=== PATIENT | male | born 1950 | race Caucasian/White ===

== ENCOUNTER 2023-08-13 13:05 | Inpatient (IN) | payer MEDICARE ==
[2023-08-13] VITALS (8 sets, daily range): BP systolic 93–135; BP diastolic 58–79
[~2023-08-13] VITALS: Ht 177.8 cm; Wt 90.3 kg
[~2023-08-13 13:05] MED LIST: ASPI325 PO; ASPI81EC PO; AVAPRO; ESOM20 PO; FENO145 PO; HYDACE5 PO; IRBE150 PO; Nifedical Xl30 MG PO; SERT100 PO; TRIHYD253A; TRIHYD253A PO
[2023-08-13] MEDS ORDERED: CLOP75 PO (13:15)
[2023-08-13] MEDS ORDERED: HYDROCODONE-AC1 EA19 PO (13:16)
[2023-08-13] MEDS ORDERED: ALPRAZOLAM0.5 M1 PO (13:17)
[2023-08-13] MEDS ORDERED: PRED20 PO (13:17)
[2023-08-13 13:42] LABS: BASOPHILS ABSOLUTE AUTO 0.03 K/mm3 (0.00-0.23); BASOPHILS PERCENT AUTO 0 % (0-2); EOSINOPHILS ABSOLUTE AUTO 0.12 K/mm3 (0.00-0.68); EOSINOPHILS PERCENT AUTO 1 % (0-6); Hematocrit 34.8 % (37.0-53.0); Hemoglobin 11.6 g/dL (13.5-17.5); IMMATURE GRAN ABSOLUTE AUTO 0.08 K/mm3 (0.00-0.10); IMMATURE GRAN PERCENT AUTO 1 % (0-1); LYMPHOCYTES ABSOLUTE AUTO 1.91 K/mm3 (0.84-5.20); LYMPHOCYTES PERCENT AUTO 17 % (21-46); MONOCYTES ABSOLUTE AUTO 0.96 K/mm3 (0.16-1.47); MONOCYTES PERCENT AUTO 9 % (4-13); Mean Corpuscular HGB 29.7 pg (26.0-34.0); Mean Corpuscular HGB Conc 33.3 g/dL (31.5-36.5); Mean Corpuscular Volume 89 fL (80-100); Mean Platelet Volume 10.7 fL (9.1-12.4); NEUTROPHILS ABSOLUTE AUTO 7.91 K/mm3 (1.96-9.15); NEUTROPHILS PERCENT AUTO 72 % (41-73); Platelet Count 199 K/mm3 (150-400); RDW Coefficient Variation 13.4 % (11.7-14.2); RDW Standard Deviation 43.8 fL (35.1-46.3); White Blood Cell Count 11.01 K/mm3 (4.00-11.30)
[2023-08-13 13:57] LABS: Albumin, Blood 2.6 g/dL (3.4-5.0); Albumin/Globulin Ratio 0.6 (0.8-1.8); Bilirubin, Total 0.7 mg/dL (0.1-1.0); Calcium, Blood 8.7 mg/dL (8.5-10.1); Creatinine, Blood 2.07 mg/dL (0.60-1.20); Globulin, Blood 4.2 g/dL (2.2-4.0); Potassium, Blood 3.9 mmol/L (3.5-5.5); Total Protein, Blood 6.8 g/dL (6.4-8.2)
[2023-08-13 16:27] LABS: Anti-Xa UFH, PHA Monitoring <0.10 IU/mL; International Normalized Ratio 1.03; Prothrombin Time Results 10.8 Sec (9.7-11.5)
--- NOTE | 2023-08-13 22:53 | NUR ---
CARE ASSUMPTION: PATIENT ADMIT AT START OF SHIFT CHANGE. PATIENT FROM [place] WITH NEW STENT TO MID LAD. ALERT AND ORIENTED X4. DENIES NUMBNESS/TINGLING. 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 UP WITH NURSE ASSIST TO BSC. GLASSES AT BEDSIDE. ON ROOM AIR SATING ABOVE 95%. DENIES SOB/COUGH. LUNGS SOUNDING CLEAR AND DIM IN BASES. EVEN AND UNLABORED RESPIRATIONS. TELE SHOWING SR WITH HR 70-90'S. DENIES CHEST PAIN/PRESSURE/PALPITATIONS. NO EDEMA NOTED. SBP 90-120'S. RIGHT RADIAL SITE WNL, SOFT AND NONTENDER. TR BAND BEING DEFLATED. ARM BOARD IN PLACE. THIS RN EDUCATED ON RADIAL PRECAUTIONS. PATIENT ABLE TO TEACH BACK INSTRUCTIONS. ECHO ORDERS IN PLACE. POST VITALS IN PROGRESS AND STABLE. DR. MIKE CALLED AT START OF SHIFT BY THIS RN TO CONFIRM ORDERS. ORDERS TO DC IV HEPARIN GTT. HEPARIN DISCONTINUED. SKIN OVERALL C/D/I. CALL LIGHT IN REACH. MED REC COMPLETED WITH PATIENT HOME LIST. DENIES NEEDS AT THIS TIME.
--- NOTE | 2023-08-13 23:06 | NUR ---
TR BAND REMOVED AT THIS TIME. ARM BOARD IN PLACE. SITE REMAINS SOFT AND NONTENDER.
[2023-08-14 04:08] VITALS: BP 98/62
[2023-08-14 04:16] LABS: BASOPHILS ABSOLUTE AUTO 0.03 K/mm3 (0.00-0.23); BASOPHILS PERCENT AUTO 0 % (0-2); EOSINOPHILS ABSOLUTE AUTO 0.14 K/mm3 (0.00-0.68); EOSINOPHILS PERCENT AUTO 1 % (0-6); Hematocrit 31.4 % (37.0-53.0); Hemoglobin 10.4 g/dL (13.5-17.5); IMMATURE GRAN ABSOLUTE AUTO 0.04 K/mm3 (0.00-0.10); IMMATURE GRAN PERCENT AUTO 0 % (0-1); LYMPHOCYTES ABSOLUTE AUTO 1.92 K/mm3 (0.84-5.20); LYMPHOCYTES PERCENT AUTO 19 % (21-46); MONOCYTES ABSOLUTE AUTO 0.85 K/mm3 (0.16-1.47); MONOCYTES PERCENT AUTO 9 % (4-13); Mean Corpuscular HGB 29.7 pg (26.0-34.0); Mean Corpuscular HGB Conc 33.1 g/dL (31.5-36.5); Mean Corpuscular Volume 90 fL (80-100); Mean Platelet Volume 10.6 fL (9.1-12.4); NEUTROPHILS ABSOLUTE AUTO 6.97 K/mm3 (1.96-9.15); NEUTROPHILS PERCENT AUTO 70 % (41-73); Platelet Count 181 K/mm3 (150-400); RDW Coefficient Variation 13.4 % (11.7-14.2); RDW Standard Deviation 44.2 fL (35.1-46.3); White Blood Cell Count 9.95 K/mm3 (4.00-11.30)
[2023-08-14 04:40] LABS: Alanine Aminotransfer (ALT/SGP 38 U/L (12-78); Albumin, Blood 2.4 g/dL (3.4-5.0); Albumin/Globulin Ratio 0.6 (0.8-1.8); Alk Phos 60 U/L (50-136); Anion Gap 5 mmol/L (6-16); Aspartate Aminotrans (AST/SGOT 110 U/L (12-37); Bilirubin, Total 0.5 mg/dL (0.1-1.0); Blood Urea Nitrogen 30 mg/dL (8-24); Bun/Creatinine Ratio 18.8 (12.0-20.0); CHOL/HDL RATIO 7.3; CO2, Blood 25 mmol/L (21-32); Calcium, Blood 8.2 mg/dL (8.5-10.1); Chloride, Blood 111 mmol/L (98-108); Cholesterol 138 mg/dL (50-200); Globulin, Blood 3.9 g/dL (2.2-4.0); Glomerular Filtration Rate 46 (60-); Glucose, Blood 104 mg/dL (70-99); HDL Cholesterol 19 mg/dL (>39); LDL/HDL RATIO 3.8; Low Density Lipoprotein Chol 72 mg/dL (0-110); Magnesium, Blood 2.1 mg/dL (1.6-2.4); Potassium, Blood 3.5 mmol/L (3.5-5.5); Sodium, Blood 141 mmol/L (136-145); Total Protein, Blood 6.3 g/dL (6.4-8.2); Triglycerides 237 mg/dL (30-160); Very Low Density Lipoprot Chol 47 mg/dL (6-32)
--- NOTE | 2023-08-14 06:20 | NUR ---
SHIFT SUMMARY: NO ACUTE CHANGES. PATIENT SLEEPS THROUGHOUT NIGHT. WAKING FOR CARES AND VITAL SIGNS. UP TO BATHROOM WITH SBA. VITAL SIGNS REMAINS STABLE POST ANGIO. RIGHT RADIAL SITE WNL, ARM BOARD REMAINS IN PLACE. TR BAND REMOVED AROUND 2300, TEGADERM COVERING SITE. TELE CONTINUES TO SHOW SR WITH HR 70-90'S. NO TELE EVENTS THIS SHIFT. BP STABLE. DENIES CHEST PAIN/PRESSURE. REMAINS ON ROOM AIR. DENIES CHEST PAIN/PRESSURE. ECHO ORDERS IN PLACE. DRINKING WATER. CALL LIGHT IN REACH. CALLING FOR NEEDS. SLEEPING AT THIS TIME. VITALS REMAIN STABLE.
[2023-08-14 07:43] VITALS: BP 141/111
[2023-08-14 08:02] VITALS: BP 101/69
[2023-08-14 11:33] VITALS: BP 92/63
[2023-08-14 15:36] VITALS: BP 95/64
--- NOTE | 2023-08-14 18:36 | NUR ---
SHIFT SUMMARY ASSUMED CARE AT 1500. ALERT, ORIENTED, PLEASANT, COOPERATIVE. INDEPENDENT IN ROOM. RESP ROOM AIR, SATS ABOVE 92%. TELE NSR 80. REPORTS MILD CHEST PAIN /[address] MIKE AWARE. MEDICATED FOR PAIN WITH OXYCODONE AND TYLENOL. CHEST PAIN REASSESSMENT 01/11. TOLERATING CARDIAC DIET AND LIQUIDS. 500 ML FLUID BOLUS THIS SHIFT TO IMPROVE KIDNEY FUNCTION, LABS TO BE RECHECKED IN AM. NPO AFTER MIDNIGHT FOR POSSIBLE ANGIO 08/15/23, DR MIKE TO REEVALUATE IN AM. R RADIAL SITE SOFT, NON-TENDER, WNL WITH TEGADERM IN PLACE.
[2023-08-14 21:40] VITALS: BP 94/64
[2023-08-15 00:17] VITALS: BP 106/61
[2023-08-15 04:49] VITALS: BP 98/63
[2023-08-15 06:08] LABS: BASOPHILS ABSOLUTE AUTO 0.02 K/mm3 (0.00-0.23); BASOPHILS PERCENT AUTO 0 % (0-2); EOSINOPHILS ABSOLUTE AUTO 0.06 K/mm3 (0.00-0.68); EOSINOPHILS PERCENT AUTO 1 % (0-6); Hematocrit 28.4 % (37.0-53.0); Hemoglobin 9.4 g/dL (13.5-17.5); IMMATURE GRAN ABSOLUTE AUTO 0.04 K/mm3 (0.00-0.10); IMMATURE GRAN PERCENT AUTO 1 % (0-1); LYMPHOCYTES ABSOLUTE AUTO 1.66 K/mm3 (0.84-5.20); LYMPHOCYTES PERCENT AUTO 20 % (21-46); MONOCYTES ABSOLUTE AUTO 0.71 K/mm3 (0.16-1.47); MONOCYTES PERCENT AUTO 8 % (4-13); Mean Corpuscular HGB 29.7 pg (26.0-34.0); Mean Corpuscular HGB Conc 33.1 g/dL (31.5-36.5); Mean Corpuscular Volume 90 fL (80-100); Mean Platelet Volume 10.4 fL (9.1-12.4); NEUTROPHILS PERCENT AUTO 71 % (41-73); Platelet Count 214 K/mm3 (150-400); RDW Coefficient Variation 13.3 % (11.7-14.2); RDW Standard Deviation 44.4 fL (35.1-46.3); Red Blood Cell Count 3.17 M/mm3 (4.30-5.90); White Blood Cell Count 8.49 K/mm3 (4.00-11.30)
--- NOTE | 2023-08-15 06:20 | NUR ---
SHIFT SUMMARY PATIENT ALERT AND ORIENTED X4, INDEPENDENT IN HIS ROOM. PATIENT ON ROOM AIR, DENIES SHORTNESS OF BREATH. VITAL SIGNS STABLE, SINUS RHYTHM ON TELE. PATIENT DID REPORT MILD CHEST DISCOMFORT RATED 1/10, DECLINED PAIN MEDICATION. WILL CONTINUE TO MONITOR. CALL LIGHT WITHIN REACH.
[2023-08-15 06:34] LABS: Magnesium, Blood 2.1 mg/dL (1.6-2.4)
[2023-08-15 06:35] LABS: Albumin, Blood 2.5 g/dL (3.4-5.0); Albumin/Globulin Ratio 0.6 (0.8-1.8); Bilirubin, Total 0.5 mg/dL (0.1-1.0); Bun/Creatinine Ratio 18.4 (12.0-20.0); Calcium, Blood 8.9 mg/dL (8.5-10.1); Creatinine, Blood 1.52 mg/dL (0.60-1.20); Globulin, Blood 3.9 g/dL (2.2-4.0); Potassium, Blood 3.7 mmol/L (3.5-5.5); Total Protein, Blood 6.4 g/dL (6.4-8.2)
[2023-08-15 07:54] VITALS: BP 107/69
--- NOTE | 2023-08-15 08:27 | NUR ---
DR MIKE ROUNDED ON PT AT 0830. PT DENYING CHEST PAIN/PRESSURE AT THIS TIME. PT ASKING FOR DISCHARGE AND BE SEEN OUTPATIENT. MD INSTRUCTING PT TO RETURN OUTPATIENT AND TO FOLLOW MEDICATION REGIMEN.
[2023-08-15] MEDS ORDERED: Prinivil10 MG PO (12:18)
[2023-08-15] MEDS ORDERED: METO25ER PO (12:18)
[2023-08-15] MEDS ORDERED: Crestor20 MG PO (12:19)
--- NOTE | 2023-08-15 12:51 | NUR ---
DISCHARGE UPDATE DISCHARGE PACKET GONE OVER WITH PT AT 1244. PT DISCHARGED AT 1250 VIA WHEELCHAIR AND ON RA. PT STENT CARD IN DISCHARGE PACKET AND WITH PT AT TIME OF DISCHARGE. PT PERSONAL BELONGINGS IN A BAG AND WITH PT AT TIME OF DISCHARGE. PT ABLE TO TRANSFER SLEF TO AND FROM WHEELCHAIR, TOLERATED WELL. RIGHT RADIAL SIT C/D/I AND ARM BOARD IN [place] AT TIME OF DISCHARGE.
== END 2023-08-15 12:45 | disposition home or self-care (01) | DRG 247 ==
LOC: ER 13:05 → PCU 15:20
PROVIDERS: Student in an Organized Health Care Education/Training Program; ADMIT Hospitalist
PROC: 027034Z Dilation of Coronary Artery, One Artery with Drug-eluting Intraluminal Device, Percutaneous Approach (ICD-10-PCS; principal; 2023-08-13)
PROC: 02F03ZZ Fragmentation in Coronary Artery, One Artery, Percutaneous Approach (ICD-10-PCS; 2023-08-13)
PROC: 4A023N7 Measurement of Cardiac Sampling and Pressure, Left Heart, Percutaneous Approach (ICD-10-PCS; 2023-08-13)
PROC: B2111ZZ Fluoroscopy of Multiple Coronary Arteries using Low Osmolar Contrast (ICD-10-PCS; 2023-08-13)
PROC: B240ZZ3 Ultrasonography of Single Coronary Artery, Intravascular (ICD-10-PCS; 2023-08-13)
DX: I21.4 Non-ST elevation (NSTEMI) myocardial infarction (principal); N17.9 Acute kidney failure, unspecified; E78.5 Hyperlipidemia, unspecified; F32.A Depression, unspecified; I25.5 Ischemic cardiomyopathy; K21.9 Gastro-esophageal reflux disease without esophagitis; I25.10 Atherosclerotic heart disease of native coronary artery without angina pectoris; N40.0 Benign prostatic hyperplasia without lower urinary tract symptoms; R94.31 Abnormal electrocardiogram [ECG] [EKG]; I12.9 Hypertensive chronic kidney disease with stage 1 through stage 4 chronic kidney disease, or unspecified chronic kidney disease; N18.9 Chronic kidney disease, unspecified; D63.1 Anemia in chronic kidney disease; K44.9 Diaphragmatic hernia without obstruction or gangrene; Z87.442 Personal history of urinary calculi; Z79.899 Other long term (current) drug therapy; Z98.890 Other specified postprocedural states; Z95.5 Presence of coronary angioplasty implant and graft; Z86.73 Personal history of transient ischemic attack (TIA), and cerebral infarction without residual deficits; Z88.8 Allergy status to other drugs, medicaments and biological substances; Z90.49 Acquired absence of other specified parts of digestive tract; Z79.891 Long term (current) use of opiate analgesic; Z79.82 Long term (current) use of aspirin; Z87.891 Personal history of nicotine dependence; Z79.02 Long term (current) use of antithrombotics/antiplatelets
CPT/HCPCS: 0715T; 36415; 76937; 80053; 80061; 83036; 83690; 83735; 84484; 85025; 85347; 85520; 85610; 85730; 92920; 92978; 93005; 93010; 93306; 93454; 96374; 96375; 97162; 97165; 97530; 97535; 99152; 99153; 99285-25; A9270; C1725; C1753; C1761; C1769; C1874; C1887; C1894; C9113; C9600; C9602; J1644; J2250; J2371; J3010; J7030; J7040; J7050; Q9967